=== PATIENT | male | born 1985 ===

== ENCOUNTER 2017-07-25 19:46 | Emergency (ER) | payer OTHER ==
[2017-07-25 19:56] VITALS: BP 165/91; PULSE 96; RESP 18; TEMP 98.1; O2SAT 100
--- NOTE | 2017-07-25 20:24 | ED PDOC ---
HPI: General Adult Time Seen by Provider: 07/25/17 19:57 Chief Complaint (Nursing): Med Refill Chief Complaint (Provider): Med Refill History Per: Patient History/Exam Limitations: no limitations Onset/Duration Of Symptoms: Days Additional Complaint(s): 31 year old male presents to the emergency department for a medication refill of Ambilify, 5 mg half tab, that he takes at night for bipolar disorder. States he depleted a supply 2 weeks ago and does not have an appointment until 2017 with his psychiatrist. States today he found out it was on the 08/02 although he thought it was sooner and had an anxiety attack. During that he felt like he could not concentrate. Reports he was able to calm himself down and currently has no symptoms. Denies dizziness, contrary to triage note, chest pain, shortness of breath, suicidal/homicidal ideation, or hallucinations. Past Medical History Reviewed: Historical Data, Nursing Documentation, Vital Signs Vital Signs: Last Vital Signs Temp 98.1 F 07/25/17 19:54 Pulse 96 H 07/25/17 19:54 Resp 18 07/25/17 19:54 BP 165/91 H 07/25/17 19:54 Pulse Ox 100 07/25/17 20:28 - Medical History PMH: Anxiety, Bipolar Disorder - Surgical History Surgical History: No Surg Hx - Family History Family History: States: No Known Family Hx - Social History Current smoker - smoking cessation education provided: No Alcohol: None - Home Medications Home Medications: Ambulatory Orders Medication Instructions Recorded ARIPiprazole [Abilify] 2.5 mg PO HS #8 tab 07/25/17 - Allergies Allergies/Adverse Reactions: Allergies Allergy/AdvReac Type Severity Reaction Status Date / Time No Known Allergies Allergy Verified 07/25/17 19:54 Review of Systems ROS Statement: Except As Marked, All Systems Reviewed And Found Negative (As per HPI, otherwise negative) Cardiovascular: Negative for: Chest Pain Respiratory: Negative for: Shortness of Breath Neurological: Negative for: Dizziness Psych: Positive for: Anxiety (had resolved since). Negative for: Suicidal ideation (homicidal ideation), Other (hallucinations) Physical Exam - Reviewed Nursing Documentation Reviewed: Yes Vital Signs Reviewed: Yes - Physical Exam Appears: Positive for: Well, Non-toxic, No Acute Distress Head Exam: Positive for: ATRAUMATIC, NORMAL INSPECTION, NORMOCEPHALIC Skin: Positive for: Normal Color, Warm, Dry Eye Exam: Positive for: Normal appearance, EOMI, PERRL. Negative for: Conjunctival injection Neurologic/Psych: Positive for: Alert, Oriented (x3), Mood/Affect (Calm, cooperative, and jovial. ) - ECG O2 Sat by Pulse Oximetry: 100 (RA) Pulse Ox Interpretation: Normal Medical Decision Making Medical Decision Making: Time: 1999 Initial impression: Medication refill Initial plan: Scribe Attestation: Documented by Allie Bueno, acting as a scribe for Amrit Schaffer PA-C. Provider Scribe Attestation: All medical record entries made by the Scribe were at my direction and personally dictated by me. I have reviewed the chart and agree that the record accurately reflects my personal performance of the history, physical exam, medical decision making, and the department course for this patient. I have also personally directed, reviewed, and agree with the discharge instructions and disposition. Disposition - Clinical Impression Clinical Impression: Medication refill - Patient ED Disposition Is Patient to be Admitted: No - Disposition Referrals: [facility] [Outside] Disposition: Routine/Home Disposition Time: 22:44 Condition: STABLE Additional Instructions: Follow up with your therapist on 08/02/2017 without fail. Return to ED immediately if symptoms worsen. Prescriptions: ARIPiprazole [Abilify] 2.5 mg PO HS #8 tab Forms: [facility] (Romansh)
== END 2017-07-25 20:38 | disposition home or self-care (01) ==
LOC: H.ER 19:46
DX: Z76.0 Encounter for issue of repeat prescription (principal); F31.9 Bipolar disorder, unspecified; F41.9 Anxiety disorder, unspecified

== ENCOUNTER 2018-02-08 21:32 | Emergency (ER) | payer OTHER ==
[2018-02-08 21:41] VITALS: BP 131/78; PULSE 94; RESP 16; TEMP 98.5; O2SAT 99
--- NOTE | 2018-02-08 22:47 | ED PDOC ---
HPI: Psych/Substance Abuse Time Seen by Provider: 02/08/18 22:40 Chief Complaint (Nursing): Med Refill Chief Complaint (Provider): Med Refill History Per: Patient History/Exam Limitations: no limitations Suicide/Self Injury Attempted (Context): None Additional Complaint(s): Patient presents to the emergency department requesting a medication refill. Patient reports that he used to take Abilify 2.5mg and Remeron 22.5mg daily for Depression and Bipolar Disorder. Patient reports he has not has his medications in a month secondary to [place] in [place] to maintain [place]. Patient went to [facility] today and was advised he would not be able to see a psychiatrist for a month, prompting ED evaluation. Patient reports he has been experiencing difficulty sleeping, racing thoughts. Denies SI, HI, A/V hallucinations. PMD: none Past Medical History Reviewed: Historical Data, Nursing Documentation, Vital Signs Vital Signs: Last Vital Signs Temp 98.5 F 02/08/18 21:39 Pulse 94 H 02/08/18 21:39 Resp 16 02/08/18 21:39 BP 131/78 02/08/18 21:39 Pulse Ox 99 02/08/18 21:39 - Medical History PMH: Anxiety, Bipolar Disorder, Depression - Surgical History Surgical History: No Surg Hx - Family History Family History: States: Unknown Family Hx - Home Medications Home Medications: Ambulatory Orders Medication Instructions Recorded ARIPiprazole [Abilify] 2.5 mg PO HS #8 tab 07/25/17 ARIPiprazole [Abilify] 2.5 mg PO HS #30 tab 02/08/18 Mirtazapine [Remeron] 22.5 mg PO HS #15 tab 02/08/18 - Allergies Allergies/Adverse Reactions: Allergies Allergy/AdvReac Type Severity Reaction Status Date / Time No Known Allergies Allergy Verified 07/25/17 19:54 Review of Systems ROS Statement: Except As Marked, All Systems Reviewed And Found Negative Psych: Positive for: Other (med refill) Physical Exam - Reviewed Nursing Documentation Reviewed: Yes Vital Signs Reviewed: Yes - Physical Exam Appears: Positive for: Well, Non-toxic, No Acute Distress Head Exam: Positive for: NORMOCEPHALIC Skin: Positive for: Normal Color, Warm, Dry Eye Exam: Positive for: Normal appearance ENT: Positive for: Other (Mucus membranes moist. Airway patent, (-) stridor. ) Neck: Positive for: Painless ROM, Supple Cardiovascular/Chest: Positive for: Regular Rate, Rhythm Respiratory: Positive for: Normal Breath Sounds Extremity: Positive for: Normal ROM. Negative for: Deformity Neurologic/Psych: Positive for: Alert, Oriented (x3), Mood/Affect (appropriate), Gait (steady in ED). Negative for: Aphasia, Facial Droop - ECG O2 Sat by Pulse Oximetry: 99 (RA) Pulse Ox Interpretation: Normal Medical Decision Making Medical Decision Making: Initial Impression: Med Refill Plan: -crisis evaluation -re-evaluation 2320 Per crisis evaluation, patient to discharged with diagnosis of medication refill per Dr Villela. Dr Villela requests medications be refilled for 30 days. On re-evaluation, patient reports improvement of symptoms. On exam, patient remains AAOx3, in no acute distress. Vitals stable. Lab/Diagnostic results d/w the patient in great detail. Diagnosis of medication refill d/w the patient. Based on history, exam and diagnostic results, plan will be for outpatient follow up as arranged by crisis. Patient instructed to follow-up with pmd / referral provided / the clinic in 1- 2 days without fail. Advised to take medication as prescribed. Return to the emergency room at any time for any new or worsening symptoms. Patient states he fully agrees with and understands discharge instructions. States that he agrees with the plan and disposition. Verbalized and repeated discharge instructions and plan. I have given the patient opportunity to ask any additional questions. Disposition - Clinical Impression Clinical Impression: Medication refill, Bipolar disorder, Depression - Patient ED Disposition Is Patient to be Admitted: No Counseled Patient/Family Regarding: Studies Performed, Diagnosis, Need For Followup, Rx Given - Disposition Referrals: [facility] [Outside] Disposition: Routine/Home Disposition Time: 23:25 Condition: STABLE Additional Instructions: The emergency medical care you received today was directed at your acute symptoms. If you were prescribed any medication, please fill it and take as directed. It may take several days for your symptoms to resolve. Return to the Emergency Department if your symptoms worsen, do not improve, or if you have any other problems. Please contact your doctor in 2 days for re-evaluation and follow up / or call one of the physicians/clinics you have been referred to that are listed on the Patient Visit Information form that is included in your discharge packet. Bring any paperwork you were given at discharge with you along with any medications you are taking to your follow up visit. Our treatment cannot replace ongoing medical care by a primary care provider (PCP) outside of the emergency department. Prescriptions: ARIPiprazole [Abilify] 2.5 mg PO HS #30 tab Mirtazapine [Remeron] 22.5 mg PO HS #15 tab Instructions: Depression, Bipolar Disorder, Medicines for Depression Forms: [employer] (Latvian) Print Language: BELGIAN - POA Present On Arrival: None
== END 2018-02-08 23:36 | disposition home or self-care (01) ==
LOC: H.ER 21:32
DX: Z76.0 Encounter for issue of repeat prescription (principal); F31.9 Bipolar disorder, unspecified; F41.9 Anxiety disorder, unspecified

== ENCOUNTER 2018-03-01 19:38 | Emergency (ER) | payer OTHER ==
[2018-03-01 20:29] VITALS: RESP 18; TEMP 97.9
--- NOTE | 2018-03-01 21:41 | ED PDOC ---
HPI: Skin/Bite Injury Time Seen by Provider: 03/01/18 21:23 Chief Complaint (Nursing): Abnormal Skin Integrity Chief Complaint (Provider): Itchy Rash History Per: Patient History/Exam Limitations: no limitations Onset/Duration Of Symptoms: Days (x3) Current Symptoms Are (Timing): Still Present Additional Complaint(s): 32 year old male presents to the ED for evaluation of an itchy rash that started on his abdomen three days ago and spread to his back and bilateral upper extremities this morning. He states it is not painful, just extremely itchy, but did not take any meds prior to arrival. Otherwise denies new exposures / food / skin products, fever, chills, abdominal pain, facial swelling, throat pain, dysphagia, nausea, vomiting, headache, and dizziness. He additionally denies any history of similar symptoms. PMD: none provided Past Medical History Reviewed: Historical Data, Nursing Documentation, Vital Signs Vital Signs: Last Vital Signs Temp 97.9 F 03/01/18 20:29 Pulse 88 03/01/18 20:29 Resp 18 03/01/18 20:29 BP 125/79 03/01/18 20:29 Pulse Ox 98 03/01/18 20:29 - Medical History PMH: Anxiety, Bipolar Disorder, Depression - Surgical History Surgical History: No Surg Hx - Family History Family History: States: Unknown Family Hx - Social History Current smoker - smoking cessation education provided: No Alcohol: Social Drugs: Denies - Home Medications Home Medications: Ambulatory Orders Medication Instructions Recorded ARIPiprazole [Abilify] 2.5 mg PO HS #8 tab 07/25/17 ARIPiprazole [Abilify] 2.5 mg PO HS #30 tab 02/08/18 Mirtazapine [Remeron] 22.5 mg PO HS #15 tab 02/08/18 Calamine/Zinc Oxide [Calamine 1 applic TOP BID PRN #1 bottle 03/01/18 Lotion] DiphenhydrAMINE [Benadryl] 50 mg PO Q6 PRN #30 cap 03/01/18 Famotidine [Pepcid] 40 mg PO DAILY #5 tablet 03/01/18 Methylprednisolone [Medrol Dose 4 mg PO DAILY #21 mg 03/01/18 Pack (21 tabs)] - Allergies Allergies/Adverse Reactions: Allergies Allergy/AdvReac Type Severity Reaction Status Date / Time No Known Allergies Allergy Verified 07/25/17 19:54 Review of Systems ROS Statement: Except As Marked, All Systems Reviewed And Found Negative Constitutional: Negative for: Fever, Chills ENT: Negative for: Throat Pain, Other (dysphagia; facial swelling) Gastrointestinal: Negative for: Nausea, Vomiting, Abdominal Pain Skin: Positive for: Rash (to abdomen, back, and bilateral upper extremities) Neurological: Negative for: Headache, Dizziness Physical Exam - Reviewed Nursing Documentation Reviewed: Yes Vital Signs Reviewed: Yes - Physical Exam Comments: GENERAL APPEARANCE: Patient is awake, alert, oriented x 3, in no acute distress. Resting comfortably, no distress. SKIN: (+) scattered erythematous maculopapules to torso and bilateral upper extremities. Otherwise (-) excoriations, (-) drainage, (-) crusting (-) cellulitis. HENT: (-) conjunctival injection, (-) chemosis. No facial edema. Oropharynx: clear (-) tongue or lip swelling, (-) tonsillar exudates, (-) erythema. Airway: patent (-) stridor, (-) hoarseness. Mucous membranes moist. Nares: Patent (-) rhinorrhea. NECK: Supple, FROM (-) lymphadenopathy, (-) tenderness. CARDIOVASCULAR: Normal rate and rhythm CHEST: (-) rales, (-) wheezing, (-) dyspnea, (-) stridor. Breath sounds equal bilaterally. Respirations even and nonlabored. ABDOMEN: Soft. (-) tenderness, (-) distention, (-) guarding NEURO: Mental status: Patient is alert, oriented, and with normal strength and tone. Gait: steady. Speech: clear. (-) facial asymmetry - ECG O2 Sat by Pulse Oximetry: 98 (RA) Pulse Ox Interpretation: Normal Medical Decision Making Medical Decision Making: Initial Impression: pruritic dermatitis, to consider contact dermatitis Time: 2129 Initial Plan: --Benadryl 50mg PO (not driving home) --Pepcid 40mg PO --MethylPREDNISOLONE 125mg IM --Reevaluation 2229 On re-evaluation, patient reports improvement of symptoms. On exam, patient remains AAOx3, in no acute distress. Vitals stable. Lab/Diagnostic results d/w the patient in great detail. Diagnosis of pruritis, contact dermatitis/rash d/w the patient. Based on history, exam and diagnostic results, plan will be for outpatient follow up with clinic. Patient instructed to follow-up with pmd / referral provided / the clinic in 1- 2 days without fail. Advised to take medication as prescribed. Return to the emergency room at any time for any new or worsening symptoms. Patient states he fully agrees with and understands discharge instructions. States that he agrees with the plan and disposition. Verbalized and repeated discharge instructions and plan. I have given the patient opportunity to ask any additional questions. ----- Scribe Attestation: Documented by Jocelin Paniagua, acting as a scribe for Yvette Kelsey PA-C. Provider Scribe Attestation: All medical record entries made by the Scribe were at my direction and personally dictated by me. I have reviewed the chart and agree that the record accurately reflects my personal performance of the history, physical exam, medical decision making, and the department course for this patient. I have also personally directed, reviewed, and agree with the discharge instructions and disposition. Disposition - Clinical Impression Clinical Impression: Rash, Generalized pruritus, Contact dermatitis - Patient ED Disposition Is Patient to be Admitted: No Counseled Patient/Family Regarding: Studies Performed, Diagnosis, Need For Followup, Rx Given - Disposition Referrals: [facility] [Outside] Disposition: Routine/Home Disposition Time: 22:30 Condition: STABLE Additional Instructions: The emergency medical care you received today was directed at your acute symptoms. If you were prescribed any medication, please fill it and take as directed. It may take several days for your symptoms to resolve. Return to the Emergency Department if your symptoms worsen, do not improve, or if you have any other problems. Please contact your doctor in 2 days for re-evaluation and follow up / or call one of the physicians/clinics you have been referred to that are listed on the Patient Visit Information form that is included in your discharge packet. Bring any paperwork you were given at discharge with you along with any medications you are taking to your follow up visit. Our treatment cannot replace ongoing medical care by a primary care provider (PCP) outside of the emergency department. Prescriptions: Calamine/Zinc Oxide [Calamine Lotion] 1 applic TOP BID PRN #1 bottle PRN Reason: Itching / Pruritus DiphenhydrAMINE [Benadryl] 50 mg PO Q6 PRN #30 cap PRN Reason: Allergy Symptoms Famotidine [Pepcid] 40 mg PO DAILY #5 tablet Methylprednisolone [Medrol Dose Pack (21 tabs)] 4 mg PO DAILY #21 mg Instructions: Contact Dermatitis (DC), Skin Rash, Itchy Skin Forms: [employer] (Swedish) Print Language: BELGIAN - POA Present On Arrival: None
[2018-03-01 22:58] VITALS: BP 117/76; PULSE 76
[2018-03-05 02:25] VITALS: O2SAT 98
== END 2018-03-01 23:20 | disposition home or self-care (01) ==
LOC: H.ER 19:38
DX: L25.9 Unspecified contact dermatitis, unspecified cause (principal); L30.8 Other specified dermatitis
CPT/HCPCS: 96372; 99283; J2930

== ENCOUNTER 2018-03-17 15:38 | Emergency (ER) | payer OTHER ==
[2018-03-17 15:45] VITALS: RESP 16; TEMP 98.9; O2SAT 99
--- NOTE | 2018-03-17 16:24 | ED PDOC ---
HPI: Skin/Bite Injury Time Seen by Provider: 03/17/18 16:15 Chief Complaint (Nursing): Abnormal Skin Integrity Chief Complaint (Provider): Rash History Per: Patient History/Exam Limitations: no limitations Onset/Duration Of Symptoms: Days (x1 month) Current Symptoms Are (Timing): Still Present Additional Complaint(s): 32 year old male presents to the ED for evaluation of an ongoing rash for the past month, not improved with medications (prednisone, pepcid, benadryl) given to him here at onset. He notes the rash started in the genital area after having unprotected anal sex with another individual but has since spread to his abdomen. He expresses concern for herpes. Denies other complaints. PMD: none provided Past Medical History Reviewed: Historical Data, Nursing Documentation, Vital Signs Vital Signs: Last Vital Signs Temp 98.9 F 03/17/18 15:42 Pulse 98 H 03/17/18 15:42 Resp 16 03/17/18 15:42 BP 144/99 H 03/17/18 15:42 Pulse Ox 99 03/17/18 15:42 - Medical History PMH: Anxiety, Bipolar Disorder, Depression - Surgical History Surgical History: No Surg Hx - Family History Family History: States: Unknown Family Hx - Social History Current smoker - smoking cessation education provided: No Alcohol: None Drugs: Denies - Home Medications Home Medications: Ambulatory Orders Medication Instructions Recorded ARIPiprazole [Abilify] 2.5 mg PO HS #8 tab 07/25/17 ARIPiprazole [Abilify] 2.5 mg PO HS #30 tab 02/08/18 Mirtazapine [Remeron] 22.5 mg PO HS #15 tab 02/08/18 Calamine/Zinc Oxide [Calamine 1 applic TOP BID PRN #1 bottle 03/01/18 Lotion] DiphenhydrAMINE [Benadryl] 50 mg PO Q6 PRN #30 cap 03/01/18 Famotidine [Pepcid] 40 mg PO DAILY #5 tablet 03/01/18 Methylprednisolone [Medrol Dose 4 mg PO DAILY #21 mg 03/01/18 Pack (21 tabs)] Butenafine HCl [Lotrimin Ultra] 0.5 gm TP BID #30 cream..g. 03/17/18 - Allergies Allergies/Adverse Reactions: Allergies Allergy/AdvReac Type Severity Reaction Status Date / Time No Known Allergies Allergy Verified 03/17/18 15:41 Review of Systems ROS Statement: Except As Marked, All Systems Reviewed And Found Negative Skin: Positive for: Rash (on genitals, moving up to abdomen) Physical Exam - Reviewed Nursing Documentation Reviewed: Yes Vital Signs Reviewed: Yes - Physical Exam Appears: Positive for: No Acute Distress Skin: Positive for: Rash (diffuse scaly macular rash to suprapubic and pubic regions, with no signs of vesicular lesions) Cardiovascular/Chest: Positive for: Regular Rate, Rhythm Respiratory: Positive for: Normal Breath Sounds. Negative for: Respiratory Distress Gastrointestinal/Abdominal: Positive for: Normal Exam, Soft. Negative for: Tenderness Neurologic/Psych: Positive for: Alert, Oriented (x3) - ECG O2 Sat by Pulse Oximetry: 99 (RA) Pulse Ox Interpretation: Normal Medical Decision Making Medical Decision Making: Time: 1617 Initial Impression: fungal rash Initial Plan: --RPR --Discussed with patient that he is to follow up with the clinic for complete STD screening, but will be given script for fungal rash upon d/c. Scribe Attestation: Documented by Jocelin Paniagua acting as a scribe for Rey Lantigua PA-C. Provider Scribe Attestation: All medical record entries made by the Scribe were at my direction and personally dictated by me. I have reviewed the chart and agree that the record accurately reflects my personal performance of the history, physical exam, medical decision making, and the department course for this patient. I have also personally directed, reviewed, and agree with the discharge instructions and disposition. Disposition - Clinical Impression Clinical Impression: Tinea corporis - Patient ED Disposition Is Patient to be Admitted: No - Disposition Referrals: [facility] [Outside] Disposition: Routine/Home Disposition Time: 16:16 Condition: FAIR Prescriptions: Butenafine HCl [Lotrimin Ultra] 0.5 gm TP BID #30 cream..g. Instructions: Fungal Skin Rash (DC)
[2018-03-17 16:45] VITALS: BP 141/83; PULSE 87
== END 2018-03-17 16:44 | disposition home or self-care (01) ==
LOC: H.ER 15:38
DX: B35.4 Tinea corporis (principal)

== ENCOUNTER 2018-07-05 13:18 | Emergency (ER) | payer SELFPAY ==
[2018-07-05 13:38] VITALS: RESP 17
[2018-07-05] MEDS ORDERED: Lidocaine 5% Patch TD STA (15:26)
[2018-07-05] MEDS ORDERED: Lidocaine 5% Patch TD ONE (15:38)
--- NOTE | 2018-07-05 15:52 | RAD ---
Date of service: 07/05/2018 HISTORY: chest pain/ r/o infiltrate COMPARISON: No prior. TECHNIQUE: Chest PA and lateral views FINDINGS: LUNGS: No active pulmonary disease. PLEURA: No significant pleural effusion identified. No pneumothorax apparent. CARDIOVASCULAR: No aortic atherosclerotic calcification present. Normal cardiac size. No pulmonary vascular congestion. OSSEOUS STRUCTURES: No significant abnormalities. VISUALIZED UPPER ABDOMEN: Normal. OTHER FINDINGS: None. IMPRESSION: No active disease.
--- NOTE | 2018-07-05 16:51 | ED PDOC ---
HPI: Back Time Seen by Provider: 07/05/18 15:21 Chief Complaint (Nursing): Back Pain Chief Complaint (Provider): mid back pain History Per: Patient History/Exam Limitations: no limitations Onset/Duration Of Symptoms: Days (2) Current Symptoms Are (Timing): Intermittent Episodes Quality Of Discomfort: Sharp Severity: Moderate Exacerbating Factor(s): Movement, Other (deep breath) Additional Complaint(s): 32yo male c/o mid right back pain only with deep breath or movement of chest/trunk. Denies fall/trauma or injury. Denies cough, SOB, fever or hemoptysis. No prior history of similar symptoms. Past Medical History Reviewed: Historical Data, Nursing Documentation, Vital Signs Vital Signs: Last Vital Signs Temp 98.3 F 07/05/18 13:38 Pulse 79 07/05/18 13:38 Resp 17 07/05/18 13:38 BP 122/79 07/05/18 13:38 Pulse Ox 99 07/05/18 13:38 Primary Care Provider: FAMILY PROVIDER,NO - Medical History PMH: Anxiety, Bipolar Disorder, Depression - Family History Family History: States: Unknown Family Hx - Social History Current smoker - smoking cessation education provided: No - Home Medications Home Medications: Ambulatory Orders Medication Instructions Recorded ARIPiprazole [Abilify] 2.5 mg PO HS #8 tab 07/25/17 ARIPiprazole [Abilify] 2.5 mg PO HS #30 tab 02/08/18 Mirtazapine [Remeron] 22.5 mg PO HS #15 tab 02/08/18 Calamine/Zinc Oxide [Calamine 1 applic TOP BID PRN #1 bottle 03/01/18 Lotion] DiphenhydrAMINE [Benadryl] 50 mg PO Q6 PRN #30 cap 03/01/18 Famotidine [Pepcid] 40 mg PO DAILY #5 tablet 03/01/18 Methylprednisolone [Medrol Dose 4 mg PO DAILY #21 mg 03/01/18 Pack (21 tabs)] Butenafine HCl [Lotrimin Ultra] 0.5 gm TP BID #30 cream..g. 03/17/18 Ibuprofen [Motrin Tab] 600 mg PO Q6 PRN #15 tab 07/05/18 Lidocaine 5% [Lidoderm] 1 ea TD DAILY PRN #4 patch 07/05/18 - Allergies Allergies/Adverse Reactions: Allergies Allergy/AdvReac Type Severity Reaction Status Date / Time No Known Allergies Allergy Verified 07/05/18 13:38 Review of Systems ROS Statement: Except As Marked, All Systems Reviewed And Found Negative Constitutional: Negative for: Fever Eyes: Negative for: Conjunctivae Inflammation ENT: Positive for: Nose Congestion. Negative for: Ear Pain Cardiovascular: Negative for: Chest Pain Respiratory: Negative for: Cough, Shortness of Breath, Hemoptysis, SOB with Exertion, Pleuritic Pain, Sputum, Wheezing Gastrointestinal: Negative for: Abdominal Pain Genitourinary Male: Negative for: Dysuria, Hematuria Musculoskeletal: Positive for: Back Pain. Negative for: Neck Pain, Shoulder Pain, Arm Pain, Hand Pain, Leg Pain, Foot Pain Skin: Negative for: Rash, Lesions, Jaundice Neurological: Negative for: Weakness, Numbness, Headache, Dizziness Psych: Negative for: Suicidal ideation Physical Exam - Reviewed Nursing Documentation Reviewed: Yes Vital Signs Reviewed: Yes - Physical Exam Appears: Positive for: Well, Non-toxic, No Acute Distress Head Exam: Positive for: ATRAUMATIC, NORMAL INSPECTION, NORMOCEPHALIC Skin: Positive for: Normal Color, Warm, DRY Eye Exam: Positive for: EOMI, Normal appearance, PERRL ENT: Positive for: Normal ENT Inspection Neck: Positive for: Normal, Painless ROM Cardiovascular/Chest: Positive for: Regular Rate, Rhythm Respiratory: Positive for: CNT, Normal Breath Sounds Pulses-Radial (L): 3+/4+ Pulses-Radial (R): 3+/4+ Gastrointestinal/Abdominal: Positive for: Soft. Negative for: Tenderness Back: Positive for: Other (+tender R paraspinal mid thoracic region at costal margin, no edema/erythema or warmth) Extremity: Positive for: Normal ROM Neurological/Psych: Positive for: Awake, Alert, Normal Tone - ECG O2 Sat by Pulse Oximetry: 99 Medical Decision Making Medical Decision Making: prior labs from clinic reviewed HIV neg CXR read by radiologist as negative Improved in ED w motrin and lidoderm Neuro intact, ambulating without difficulty, no SOB and normal respirations Disposition - Clinical Impression Clinical Impression: Back pain - Patient ED Disposition Is Patient to be Admitted: No Counseled Patient/Family Regarding: Studies Performed, Diagnosis, Need For Followup - Disposition Referrals: [facility] [Outside] Disposition: Routine/Home Disposition Time: 16:30 Condition: STABLE Additional Instructions: Return to ER for any worse or new symptoms/ Use medications as directed for pain. Prescriptions: Ibuprofen [Motrin Tab] 600 mg PO Q6 PRN #15 tab PRN Reason: Pain, Moderate (4-7) Lidocaine 5% [Lidoderm] 1 ea TD DAILY PRN #4 patch PRN Reason: Pain, Severe (8-10) Instructions: Upper Back Pain (DC) Forms: [employer] (Scottish)
[2018-07-05 17:14] VITALS: BP 120/70; PULSE 76; TEMP 98; O2SAT 98
== END 2018-07-05 17:14 | disposition home or self-care (01) ==
LOC: H.ER 13:18
DX: M54.9 Dorsalgia, unspecified (principal)